=== PATIENT | male | born 1950 | race African-American/Black ===

== ENCOUNTER 2024-10-26 17:57 | Outpatient (CLI) | payer MEDICARE | END 2024-10-26 17:58 | disposition home or self-care (01) | LOC: CSHRAD 17:57 | PROVIDERS: ATTEND Family Medicine | DX: M47.22 Other spondylosis with radiculopathy, cervical region (principal); M50.11 Cervical disc disorder with radiculopathy, high cervical region | CPT/HCPCS: 72040 ==